=== PATIENT | male | born 1985 | race Caucasian/White ===

== ENCOUNTER 2022-03-29 09:02 | Emergency (ER) | payer SELFPAY ==
[~2022-03-29] VITALS: Ht 175.3 cm; Wt 82.0 kg
[2022-03-29 09:56] VITALS: BP 138/78
== END 2022-03-29 11:28 | disposition home or self-care (01) ==
LOC: ER 09:02
DX: F10.129 Alcohol abuse with intoxication, unspecified (principal); I49.9 Cardiac arrhythmia, unspecified; Y90.9 Presence of alcohol in blood, level not specified
CPT/HCPCS: 93005; 99283